=== PATIENT | male | born 1970 | race Caucasian/White ===

== ENCOUNTER 2017-12-07 14:19 | Observation (INO) ==
--- NOTE | 2017-12-07 15:22 | ED ---
HPI General Chief Complaint: Chest Pain Stated Complaint: Chest discomfort Time Seen by Provider: 12/07/17 14:59 Source: patient Mode of arrival: ambulatory Limitations: no limitations History of Present Illness HPI narrative: Patient is a 47-year-old male presenting to emerge department for evaluation of chest pain. Patient states he started feeling as if his heart was fluttering yesterday, today he started to experience chest pain at 11 AM this morning. He states that it is left anterior chest wall with radiation to the left arm. He reports it is pressure-like, constant. Pain started while he was grocery shopping at [employer] with his . He reports his pain is a 5 out of 10. He states his left arm feels tingly and numb. He reports mild shortness of breath. No family history of early heart disease. No history of tobacco use. No history of illicit drug use. Related Data Home Medications Medication Instructions Recorded Confirmed omeprazole 20 mg PO DAILY 08/22/17 12/07/17 ranitidine HCl [Zantac 75] 75 mg PO HS 08/22/17 12/07/17 Allergies Allergy/AdvReac Type Severity Reaction Status Date / Time No Known Allergies Allergy Verified 09/30/17 20:00 Review of Systems ROS: all other systems reviewed are negative [facility] Medical History Medical History Kidney stone (Acute) Hiatal hernia (Acute) GERD (gastroesophageal reflux disease) (Acute) Surgical History Surgical History No history of previous surgery (Acute) Social History Social History Substance History: No History of Abuse Second Hand Smoke Exposure: No Smoking Status: Never smoker How Often Do You Have a Drink Containing Alcohol: Never Recent Travel in [facility] within the Last 8 Weeks: No Recent Out of Country Travel within the Last 8 Weeks: No Immunization History Tetanus Immunization: >5 Years Exam Narrative Exam Narrative: GENERAL: Well-developed, well-nourished, alert male. Presenting in no acute distress. SKIN: Focused skin assessment warm/dry. HEAD: Atraumatic. Normocephalic. EYES: Pupils equal and round. No scleral icterus. No injection or drainage. ENT: No nasal bleeding or discharge. Mucous membranes pink and moist. NECK: Trachea midline. No JVD. CARDIOVASCULAR: Regular rate and rhythm. No murmur appreciated. RESPIRATORY: No accessory muscle use. Clear to auscultation. Breath sounds equal bilaterally. GASTROINTESTINAL: Abdomen soft, non-tender, nondistended. Hepatic and splenic margins not palpable. MUSCULOSKELETAL: No obvious deformities. No clubbing. No cyanosis. No edema. NEUROLOGICAL: Awake and alert. No obvious cranial nerve deficits. Motor grossly within normal limits. Normal speech. PSYCHIATRIC: Appropriate mood and affect; insight and judgment normal. Course Initial Documented Vital Signs Temperature 98.3 F 12/07/17 14:37 Pulse Rate 92 H 12/07/17 14:37 Respiratory Rate 20 12/07/17 14:37 Blood Pressure 151/88 H 12/07/17 14:37 Pulse Oximetry 99 12/07/17 14:37 Last Documented Vital Signs Temperature 98.3 F 12/07/17 14:37 Pulse Rate 91 H 12/07/17 15:11 Respiratory Rate 21 12/07/17 15:11 Blood Pressure 140/85 12/07/17 15:11 Pulse Oximetry 100 12/07/17 15:11 Medical Decision Making [facility] Narrative Medical decision making narrative: Patient is well-appearing 47-year-old male presenting for evaluation of chest pain. Labs and imaging ordered and pending. Patient's vital signs are stable. He will be given 324 mg of chewable aspirin now as well as 1 inch of Nitropaste to his anterior chest wall. EKG was reviewed by my attending physician, no ST elevation, normal sinus rhythm with a sinus arrhythmia with a rate of 82. Patient's is at bedside. Initial set of cardiac enzymes are negative. Chest x-ray shows no acute disease , labs are unremarkable. This time patient has not had any previous cardiac workup, he will be admitted to the chest pain center for further evaluation. Patient is agreeable to plan. Medical Screen Exam Complete: Yes Emergency Medical Condition: Yes Differential Diagnosis Differential Diagnosis: ACS versus [place] versus gastritis versus GERD versus metabolic abnormality versus cardiac arrhythmia versus other Lab Data Result diagrams: 12/07/17 15:15 12/07/17 15:15 Lab Results 12/07/17 12/07/17 12/07/17 Range/Units 15:15 15:15 15:15 WBC 7.5 (4.0-11.0) th/mm3 RBC 4.54 (4.50-5.90) mil/mm3 Hgb 14.8 (13.0-17.0) gm/dL Hct 42.8 (39.0-51.0) % MCV 94.2 (80.0-100.0) fL MCH 32.6 (27.0-34.0) pg MCHC 34.6 (32.0-36.0) % RDW 13.1 (11.6-17.2) % Plt Count 238 (150-450) th/mm3 MPV 8.1 (7.0-11.0) fL Neut % (Auto) 67.8 (16.0-70.0) % Lymph % (Auto) 24.6 (9.0-44.0) % Bent % (Auto) 6.2 (0.0-8.0) % Eos % (Auto) 1.0 (0.0-4.0) % Baso % (Auto) 0.4 (0.0-2.0) % Neut # (Auto) 5.1 (1.8-7.7) th/mm3 Lymph # (Auto) 1.9 (1.0-4.8) th/mm3 Bent # (Auto) 0.5 (0.0-0.9) th/mm3 Eos # (Auto) 0.1 (0.0-0.4) th/mm3 Baso # (Auto) 0.0 (0.0-0.2) th/mm3 WBC Differential . Differential Comment Auto diff final PT (9.8-11.6) sec INR Ratio APTT (24.3-30.1) sec D-Dimer Quant (PE/DVT) Cancelled Sodium 142 (136-145) meq/L Potassium 4.0 (3.5-5.1) meq/L Chloride 106 (98-107) meq/L Carbon Dioxide 29.2 (21.0-32.0) meq/L Anion Gap 7 (5-15) meq/L BUN 13 (7-18) mg/dL Creatinine 1.10 (0.60-1.30) mg/dL Estimated GFR 71 L (>89) mL/min Random Glucose 129 H (74-106) mg/dL Calcium 8.2 L (8.5-10.1) mg/dL Magnesium 2.2 (1.5-2.5) mg/dL Total Bilirubin 0.5 (0.2-1.0) mg/dL AST 19 (15-37) U/L ALT 28 (12-78) U/L Alkaline Phosphatase 55 (45-117) U/L Total Creatine Kinase 120 (39-308) U/L Troponin I Less than 0.02 L (0.02-0.05) ng/mL Total Protein 6.8 (6.4-8.2) g/dL Albumin 3.7 (3.4-5.0) g/dL Lipase 71 L (73-393) U/L 12/07/17 12/07/17 12/07/17 Range/Units 15:15 15:15 15:15 WBC (4.0-11.0) th/mm3 RBC (4.50-5.90) mil/mm3 Hgb (13.0-17.0) gm/dL Hct (39.0-51.0) % MCV (80.0-100.0) fL MCH (27.0-34.0) pg MCHC (32.0-36.0) % RDW (11.6-17.2) % Plt Count (150-450) th/mm3 MPV (7.0-11.0) fL Neut % (Auto) (16.0-70.0) % Lymph % (Auto) (9.0-44.0) % Bent % (Auto) (0.0-8.0) % Eos % (Auto) (0.0-4.0) % Baso % (Auto) (0.0-2.0) % Neut # (Auto) (1.8-7.7) th/mm3 Lymph # (Auto) (1.0-4.8) th/mm3 Bent # (Auto) (0.0-0.9) th/mm3 Eos # (Auto) (0.0-0.4) th/mm3 Baso # (Auto) (0.0-0.2) th/mm3 WBC Differential Differential Comment PT 10.6 (9.8-11.6) sec INR 1.0 Ratio APTT 25.5 (24.3-30.1) sec D-Dimer Quant (PE/DVT) 0.25 Sodium (136-145) meq/L Potassium (3.5-5.1) meq/L Chloride (98-107) meq/L Carbon Dioxide (21.0-32.0) meq/L Anion Gap (5-15) meq/L BUN (7-18) mg/dL Creatinine (0.60-1.30) mg/dL Estimated GFR (>89) mL/min Random Glucose (74-106) mg/dL Calcium (8.5-10.1) mg/dL Magnesium Cancelled (1.5-2.5) mg/dL Total Bilirubin (0.2-1.0) mg/dL AST (15-37) U/L ALT (12-78) U/L Alkaline Phosphatase (45-117) U/L Total Creatine Kinase Cancelled (39-308) U/L Troponin I (0.02-0.05) ng/mL Total Protein (6.4-8.2) g/dL Albumin (3.4-5.0) g/dL Lipase Cancelled (73-393) U/L Imaging Data Radiologist's impression: Chest X-Ray 12/07/17 14:40 CONCLUSION: Negative examination. Discharge Plan Discharge Disposition Patient Disposition: 30 Still Patient Discharge Condition Condition: Stable Discharge Details Diagnosis: Atypical chest pain Physicians Team ED Provider: Doron German ED Midlevel Provider: Hawa Marte Primary Care Provider: Estevan Patino Rxs /Orders / Referrals /Forms Prescriptions: No Action ranitidine HCl [Zantac 75] 75 mg Tablet 75 mg PO HS RF: 0 omeprazole 20 mg Tablet,Delayed Release (Dr/Ec) 20 mg PO DAILY RF: 0 Discharge Instructions Patient Printed Instructions: Chest Pain (ED) Status ED Status: Admitted Observation Patient
[2017-12-07 15:32] LABS: Baso % (Auto) 0.4 % (0.0-2.0); Eos # (Auto) 0.1 th/mm3 (0.0-0.4); Hematocrit 42.8 % (39.0-51.0); Hemoglobin 14.8 gm/dL (13.0-17.0); Lymph # (Auto) 1.9 th/mm3 (1.0-4.8); Lymph % (Auto) 24.6 % (9.0-44.0); Mean Corpuscular HGB Conc 34.6 % (32.0-36.0); Mean Corpuscular Hemoglobin 32.6 pg (27.0-34.0); Mean Corpuscular Volume 94.2 fL (80.0-100.0); Mean Platelet Volume 8.1 fL (7.0-11.0); Mono # (Auto) 0.5 th/mm3 (0.0-0.9); Mono % (Auto) 6.2 % (0.0-8.0); Neut # (Auto) 5.1 th/mm3 (1.8-7.7); Neut % (Auto) 67.8 % (16.0-70.0); Platelet Count 238 th/mm3 (150-450); Red Blood Count 4.54 mil/mm3 (4.50-5.90); Red Cell Distribution Width 13.1 % (11.6-17.2); White Blood Count 7.5 th/mm3 (4.0-11.0)
--- NOTE | 2017-12-07 15:34 | XR ---
EXAM DATE: 12/07/2017 3:32 PM EDT AGE/SEX: 47 years / Male INDICATIONS: Shortness of breath and tingling sensation on left side and left arm. CLINICAL DATA: This is the patient's initial encounter. Patient reports that signs and symptoms have been present for 1 day and indicates a pain score of 0/10. MEDICAL/SURGICAL HISTORY: None. None. COMPARISON: [facility], XR CHEST PA AND LAT, 02/17/2017. . FINDINGS: A single AP view of the chest demonstrates the lungs to be symmetrically aerated without evidence of mass, infiltrate or effusion. The cardiomediastinal contours are unremarkable. Osseous structures a re intact. CONCLUSION: Negative examination. Electronically signed by: Sudhir Taylor MD 12/07/2017 3:32 PM EDT
[2017-12-07 15:54] LABS: Alanine Aminotransferase 28 U/L (12-78); Albumin 3.7 g/dL (3.4-5.0); Alkaline Phosphatase 55 U/L (45-117); Anion Gap 7 meq/L (5-15); Aspartate Aminotransferase 19 U/L (15-37); Blood Urea Nitrogen 13 mg/dL (7-18); Calcium 8.2 mg/dL (8.5-10.1); Carbon Dioxide 29.2 meq/L (21.0-32.0); Chloride 106 meq/L (98-107); Creatine Kinase 120 U/L (39-308); Glomerular Filtration Rate 71 mL/min (>89); Glucose,Random 129 mg/dL (74-106); Lipase 71 U/L (73-393); Magnesium 2.2 mg/dL (1.5-2.5); Sodium 142 meq/L (136-145); Total Protein 6.8 g/dL (6.4-8.2)
[2017-12-07 15:59] LABS: Activated Partial Thrombo Time 25.5 sec (24.3-30.1); Prothrombin Time 10.6 sec (9.8-11.6)
[2017-12-07 16:00] LABS: D-Dimer 0.25 mg/L FEU (0.00-0.50)
[2017-12-07 16:08] LABS: Creatine Kinase MB 1.4 ng/mL (0.5-3.6)
[2017-12-07 19:05] LABS: Creatine Kinase 105 U/L (39-308)
[2017-12-07 22:24] LABS: Creatine Kinase 87 U/L (39-308)
[2017-12-08 00:21] VITALS: RESP 18
[2017-12-08] MEDS: Acetaminophen 500 MG Tablet PO PRN ×2 (02:29→09:16)
[2017-12-08 08:23] VITALS: BP 123/82; PULSE 84; TEMP 98; O2SAT 97
--- NOTE | 2017-12-08 08:32 | P.HPCA ---
History of Present Illness Primary Care Physician: Estevan Patino Chief Complaint: Chest pain History of Present Illness: 47 year old male with history of GERD, hiatal hernia, and renal calculi presents emergency room for further evaluation of chest pain. Onset 2 days ago. Location left anterior chest. Characterizes pressure. Moderate severity. Intermittent left arm tingling. No radiation of pain. Duration constant. No associated symptoms of nausea, vomiting, dyspnea, or diaphoresis. No precipitating or relieving factors. Denies similar pain in the past. No recent illness, fever, or injury. Endorses increased situational stress, questions if situational stress may be related to current symptoms. Lifelong non-smoker. Family history noncontributory for early onset cardiovascular disease. Past cardiac testing None Social history No known hypertension, hyperlipidemia, or diabetes. Lifelong non-smoker. No alcohol or recreational drug use. . 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 Family history Noncontributory for early onset cardiovascular disease - Diagnosis (1) Atypical chest pain (2) History of gastroesophageal reflux (GERD) Review of Systems All other systems reviewed negative except as stated in [facility] PMF[facility] - History History Provided By: Patient - Medical / Surgical Hx Neg / Unobtainable Surgical History: No Previous Surgery - Medical History Medical History: Medical History (Last Reviewed 12/08/17 @ 08:29 by MIGUEL Jefferson) Kidney stone (Acute) Hiatal hernia (Acute) GERD (gastroesophageal reflux disease) - Surgical History Surgical History: Surgical History (Last Reviewed 12/08/17 @ 08:29 by MIGUEL Jefferson) No history of previous surgery (Acute) - Social History I have reviewed the patient's Social History: Yes - Tobacco History Second Hand Smoke Exposure: No Tobacco Use In Past 30 Days: No Smoking Status: Never smoker - Alcohol History How Often Do You Have a Drink Containing Alcohol: Never - Substance Use History Substance History: No History of Abuse - Travel History History of Recent Travel: No Recent Travel in the [place] Within the Last 8 Weeks: No Recent Travel Out of the Country Within the Last 8 Weeks: No - Immunization History Tetanus Immunization: >5 Years Medications and Allergies Active Medications: Active Medications Acetaminophen (Tylenol) 500 mg PO Q4H PRN PRN Reason: HEADACHE Last Admin: 12/08/17 02:29 Dose: 500 mg Ondansetron HCl (Zofran Inj) 4 mg IV.PUSH Q6H PRN PRN Reason: NAUSEA Sodium Chloride (Ns Flush) 2 ml IV.FLUSH BID DENISE Sodium Chloride (Ns Flush) 2 ml IV.FLUSH PRN PRN PRN Reason: FLUSH AFTER USING IV ACCESS Allergies Allergy/AdvReac Type Severity Reaction Status Date / Time No Known Allergies Allergy Verified 09/30/17 20:00 Home Medications Medication Instructions Recorded Confirmed Type omeprazole 20 mg PO DAILY 08/22/17 12/07/17 History ranitidine HCl [Zantac 75] 75 mg PO HS 08/22/17 12/07/17 History Exam Vital signs: Vital Signs 12/07/17 14:37 12/07/17 15:11 12/07/17 17:54 Temperature 98.3 F 98.4 F Pulse Rate 92 H 91 H 87 Respiratory Rate 20 21 20 Blood Pressure 151/88 H 140/85 123/80 Pulse Oximetry 99 100 97 12/07/17 20:00 12/08/17 00:00 12/08/17 04:00 Temperature 98.7 F 97.8 F 97.7 F Pulse Rate 94 H 81 86 Respiratory Rate 19 18 18 Blood Pressure 126/67 102/63 103/70 Pulse Oximetry 96 98 96 12/08/17 08:20 Temperature 98.0 F Pulse Rate 84 Respiratory Rate 18 Blood Pressure 123/82 Pulse Oximetry 97 Intake & Output 12/07/17 12/08/17 12/08/17 18:59 06:59 18:59 Intake Total 0 / 0 Balance 0 / 0 Weight 86.183 kg 85.4 kg Intake: Oral 0 / 0 Other: # Voids 3 Weight On Admission 85.4 kg Narrative: GENERAL: Alert WN, WD, NAD, pleasant, male HEAD: NC, AT EYES: Sclera clear, conjunctiva without injection, pupils equal and round ENT: Mucous membranes pink and moist NECK: Supple, no masses, trachea midline CV: RRR, without murmur, rub, gallop, no JVD, S1-S2. RESP: Clear lungs throughout bilateral, no crackles, wheeze, rhonchi, symmetrical chest rise, nonlabored, able to speak in full sentences ABD: Soft, NT, ND, no masses, positive bowel tones EXT: Pulses +2x4, no dependent edema MS: Normal tone x4 extremities, nontender, no obvious deformities, full range of motion NEURO: CN II through CN XII grossly intact, motor strength 5/5 PSYCH: A+O x3, pleasant affect, appropriate speech, mood, insight and judgment SKIN: Normal turgor, normal texture, no lesions, no rashes, brisk cap refill, even hair distribution Results 12/07/17 15:15 12/07/17 15:15 Cardiac Enzymes 12/07/17 12/07/17 12/07/17 Range/Units 15:15 18: 21:30 AST 19 (15-37) U/L CK-MB (CK-2) 1.4 (0.5-3.6) ng/mL Troponin I Less than 0.02 L Less than 0.02 L Less than 0.02 L (0.02-0.05) ng/mL Coagulation 12/07/17 Range/Units 15:15 PT 10.6 (9.8-11.6) sec APTT 25.5 (24.3-30.1) sec CBC 12/07/17 Range/Units 15:15 WBC 7.5 (4.0-11.0) th/mm3 RBC 4.54 (4.50-5.90) mil/mm3 Hgb 14.8 (13.0-17.0) gm/dL Hct 42.8 (39.0-51.0) % Plt Count 238 (150-450) th/mm3 Neut # (Auto) 5.1 (1.8-7.7) th/mm3 Lymph # (Auto) 1.9 (1.0-4.8) th/mm3 [place] # (Auto) 0.5 (0.0-0.9) th/mm3 Eos # (Auto) 0.1 (0.0-0.4) th/mm3 Baso # (Auto) 0.0 (0.0-0.2) th/mm3 Comprehensive Metabolic Panel 12/07/17 Range/Units 15:15 Sodium 142 (136-145) meq/L Potassium 4.0 (3.5-5.1) meq/L Chloride 106 (98-107) meq/L Carbon Dioxide 29.2 (21.0-32.0) meq/L BUN 13 (7-18) mg/dL Creatinine 1.10 (0.60-1.30) mg/dL Calcium 8.2 L (8.5-10.1) mg/dL AST 19 (15-37) U/L ALT 28 (12-78) U/L Alkaline Phosphatase 55 (45-117) U/L Total Protein 6.8 (6.4-8.2) g/dL Albumin 3.7 (3.4-5.0) g/dL Intake and Output 12/07/17 12/08/17 12/08/17 22:59 06:59 14:59 Intake Total 0 / 0 Balance 0 / 0 Intake: Oral 0 / 0 Other: # Voids 3 Weight 85.4 kg 85.4 kg Weight On Admission 85.4 kg - Imaging and Cardiology Imaging: Impressions Chest X-Ray 12/07/17 14:40 CONCLUSION: Negative examination. EKG interpretations - EKG EKG results cardiology: sinus rhythm, normal axis, normal QRS, normal ST/T Caprini VTE Risk Assessment Caprini VTE Risk Assessment: No/Low Risk (score <= 1) Caprini Risk Assessment Model: Point Value = 1 Point Value = 2 Point Value = 3 Point Value = 5 Age 41-60 Minor surgery BMI > 25 kg/m2 Swollen legs Varicose veins or History of unexplained or recurrent spontaneous Oral contraceptives or hormone replacement Sepsis (< 1 month) Serious lung disease, including pneumonia (< 1 month) Abnormal pulmonary function Acute myocardial infarction Congestive heart failure (< 1 month) History of inflammatory bowel disease Medical patient at bed rest Age 61-74 Arthroscopic surgery Major open surgery (> 45 min) Laparoscopic surgery (> 45 min) Malignancy Confined to bed (> 72 hours) Immobilizing plaster cast Central venous access Age >= 75 History of VTE Family history of VTE Factor V Leiden Prothrombin [id number] Lupus anticoagulant Anticardiolipin antibodies Elevated serum homocysteine Heparin-induced thrombocytopenia Other congenital or acquired thrombophilia Stroke (< 1 month) Elective arthroplasty Hip, pelvis, or leg fracture Acute spinal cord injury (< 1 month) Prophylaxis Regimen: Total Risk Factor Score Risk Level Prophylaxis Regimen 0-1 Low Early ambulation 2 Moderate Order ONE of the following: *Sequential Compression Device (SCD) *Heparin 5000 units SQ BID 3-4 Higher Order ONE of the following medications: *Heparin 5000 units SQ TID *Enoxaparin/Lovenox 40 mg SQ daily (WT < 150 kg, CrCl > 30 mL/min) *Enoxaparin/Lovenox 30 mg SQ daily (WT < 150 kg, CrCl > 10-29 mL/min) *Enoxaparin/Lovenox 30 mg SQ BID (WT < 150 kg, CrCl > 30 mL/min) AND/OR *Sequential Compression Device (SCD) 5 or more Highest Order ONE of the following medications: *Heparin 5000 units SQ TID (Preferred with Epidurals) *Enoxaparin/Lovenox 40 mg SQ daily (WT < 150 kg, CrCl > 30 mL/min) *Enoxaparin/Lovenox 30 mg SQ daily (WT < 150 kg, CrCl > 10-29 mL/min) *Enoxaparin/Lovenox 30 mg SQ BID (WT < 150 kg, CrCl > 30 mL/min) AND *Sequential Compression Device (SCD) Assessment and Plan - Assessment (1) Atypical chest pain Code(s): R07.89 - Other chest pain Status: Acute Plan: Admitted chest pain center. ACS ruled out 3 sets of EKGs, cardiac enzymes, monitor on telemetry overnight. Seen and evaluated by Dr. Anthony Rondon. Proceed with exercise cardiac testing this morning. If unremarkable, plans are to discharge home with follow-up with primary care provider. Patient agreeable to plan of care and verbalizes understanding. (2) History of gastroesophageal reflux (GERD) Code(s): Z87.19 - Personal history of other diseases of the digestive system Status: Chronic Plan: Continue omeprazole and ranitidine. Follow-up with primary care provider as previously instructed. H&P: Quality - VTE Deep Vein Thrombosis/Pulmonary Embolism Present on Admission: No
[2017-12-08] MEDS ORDERED: Pantoprazole Sodium 20 MG DR Tablet PO SCH (09:00)
--- NOTE | 2017-12-09 17:22 | TR ---
Date Performed: 12/08/2017 Time Performed: 09:31:00 DOCTOR: Danielle Marc DRUG LIST: CLINICAL HISTORY: REASON FOR TEST: REASON FOR ENDING: OBSERVATION: CONCLUSION: Mohan protocol completed. Stopped sec to exceeding target heart rate and leg fatigue . Maximum LM=212 Max HR Achieved=94.0% Maximum IO=904/82 Total Exercise Time=9:01. No reprod chest di scomfort. Rare PVC. Upsloping st t segments. Normal bp response. Great exercise tolerance. Recovery q uick and unremarkable. No ischemia COMMENTS: no ischemia
--- NOTE | 2017-12-09 17:25 | ECG ---
Date Performed: 12/07/2017 Time Performed: 14:50:02 PTAGE: 47 years EKG: Sinus rhythm WITH SINUS ARRHYTHMIA NORMAL ECG NO PREVIOUS TRACING DOCTOR: Danielle Marc Interpretating Date/Time 12/09/2017 17:23:44
--- NOTE | 2017-12-09 17:25 | ECG ---
Date Performed: 12/07/2017 Time Performed: 21:43:07 PTAGE: 47 years EKG: Sinus rhythm NORMAL ECG Since PREVIOUS TRACING , no significant change noted PREVIOUS TRACIN12/07/2017 18.23 DOCTOR: Danielle Marc Interpretating Date/Time 12/09/2017 17:23:19
--- NOTE | 2017-12-09 17:26 | ECG ---
Date Performed: 12/07/2017 Time Performed: 18:23:50 PTAGE: 47 years EKG: Sinus rhythm NORMAL ECG Since PREVIOUS TRACING , no significant change noted DOCTOR: Danielle Marc Interpretating Date/Time 12/09/2017 17:23:57
== END 2017-12-08 10:28 | disposition home or self-care (01) ==
LOC: NEPE 14:19 → NEDA 14:19 → NEPHCDU 17:29